=== PATIENT | male | born 1995 | race African-American/Black ===

== ENCOUNTER 2016-09-25 13:41 | Emergency (ER) | payer SELFPAY ==
[~2016-09-25] VITALS: Ht 175.3 cm; Wt 70.1 kg
[2016-09-25 13:46] VITALS: BP 105/70
[2016-09-25] MEDS ORDERED: SODIUM BICARBONATE 1 MEQ/ML, 50ML VIAL ONE (13:49)
== END 2016-09-25 14:32 | disposition home or self-care (01) ==
LOC: ED 14:10
DX: J20.9 Acute bronchitis, unspecified (principal)
CPT/HCPCS: 71020; 99284